=== PATIENT | female | born 1985 | race Caucasian/White ===

== ENCOUNTER 2023-10-07 19:13 | Outpatient (REF) | payer MEDICAID, SELFPAY ==
[2023-10-13 16:10] LABS: Age Gdln ACOG Testing Note (.); HPV Aptima Negative (Negative); IGP, Aptima HPV, rfx 16/18,45 Note (.)
== END 2023-10-07 19:14 | disposition home or self-care (01) ==
LOC: LAB 19:13
PROVIDERS: PCP Family Medicine; Visit Provider Obstetrics & Gynecology
DX: Z01.419 Encounter for gynecological examination (general) (routine) without abnormal findings (principal)
CPT/HCPCS: 87624; G0145

== ENCOUNTER 2024-10-16 09:55 | Outpatient (OUT) | payer MEDICAID, SELFPAY ==
[2024-10-16 10:14] LABS: Basophils Percent Auto 0.3 % (0.2-2.0); Eosinophils Absolute Auto 0.1 10^3/uL (0.0-0.7); Eosinophils Percent Auto 0.8 % (0.9-7.0); Hematocrit 37.5 % (36.0-48.0); Hemoglobin 12.6 g/dL (12.0-16.0); Immature Granulocytes Abs Auto 0.05 10^3/uL (0.00-0.03); Immature Granulocytes Pct Auto 0.5 % (0.0-0.5); Lymphocytes Absolute Auto 2.4 10^3/uL (1.2-3.8); Lymphocytes Percent Auto 25.9 % (20.5-60.0); Mean Corpuscular HGB Conc 33.6 g/dL (29.9-35.2); Mean Corpuscular Hemoglobin 29.4 pg (26.7-34.0); Mean Corpuscular Volume 87.6 fL (81.0-99.0); Mean Platelet Volume 8.5 fL (9.5-13.5); Monocytes Absolute Auto 0.4 10^3/uL (0.3-0.8); Monocytes Percent Auto 4.8 % (1.7-12.0); Neutrophils Absolute Auto 6.2 10^3/uL (1.4-6.5); Neutrophils Percent Auto 67.7 % (43.0-75.0); Platelet Count 287 10^3/uL (150-450); Red Blood Count 4.28 10^6/uL (4.20-5.40); Red Cell Distribution Width 12.7 % (11.0-15.0); White Blood Count 9.2 10^3/uL (4.0-11.0)
--- OUTSIDE RECORDS SUMMARY | 2024-10-16 10:20 | XMS_ITS | CCD ---
Author Organization [facility] Care Team Providers Care Senior Ui Ux Developer Name Role Phone Chato Calle Primary Care Provider CHATO CALLE Primary Care Unavailable CHATO CALLE Referring Unavailable HUBERT GRIFFIN Admitting Unavailable HUBERT GRIFFIN Attending Unavailable LA Procedure Practitioner Unavailab HUBERT Ma Surgeon Unavailable Sandy Norris Unavailable JUAN OROZCO Admitting Unavailable DRU, DR CHATO Blackwood Primary Care Unavailable BETO, DR ANIL Ramirez Consulting Unavailable BILLY ., JUAN Attending Unavailable BILLY ., JUAN Consulting Unavailable SUNDAY ., DR HSU Attending Unavailable SUNDAY ., DR HSU Consulting Unavailable SUNDAY ., DR HSU Admitting Unavailable DRU, DR CHATO Blackwood Primary Care Unavailable SUNDAY ., DR HSU Attending Unavailable SUNDAY ., DR HSU Consulting Unavailable SUNDAY ., DR HSU Admitting Unavailable DRU, DR CHATO Blackwood Primary Care Unavailable HUBERT GRIFFIN Attending Unavailable HUBERT GRIFFIN Admitting Unavailable HUBERT GRIFFIN Attending Unavailable HUBERT GRIFFIN Attending Unavailable Mary Bryan Unavailable BLANCA WHATLEY Attending Unavailable SHADI BRAND Attending Unavailable Chato Calle MD Primary Care Provider CHATO CALLE Primary Care Unavailable CHATO CALLE Primary Care Unavailable DANIEL DIOR Attending Unavailable Chato Calle MD Primary Care Provider [phone] Allergies Allergy Classification Reported Allergen(s) Allergy Type Date of Onset Reaction(s) Facility (8 sources) Acetaminophen / oxyCODONE; Translations: [OXYCODONE-ACETAM INOPHEN] Drug Allergy 1 Vomiting, Unknown, GI intolerance [facility] (3 sources) Penicillins; Translations: [PENICILLINS] Drug Allergy 1 Rash [facility] (2 sources) Acetaminophen / oxyCODONE; Translations: [PERCOCET] Drug Allergy 5 [facility] (1 source) Penicillins (Antibiotic); Translations: [PCN] Propensity to adverse reactions (disorder) 1 [facility] (3 sources) penicillAMINE Drug Allergy 4 rash [facility] (1 source) Penicillins Drug allergy (disorder) 7 [facility] (1 source) Penicillin; Translations: [PENICILLIN] Drug Allergy 1 [facility] (1 source) Acetaminophen Drug Allergy 4 [facility] (1 source) oxyCODONE Drug Allergy 4 [facility] (1 source) Penicillins Propensity to adverse reactions to drug 1 Rash [facility] (2 sources) Penicillins Drug Allergy 1 Rash, Unknown [facility] Medications Current Medications Medication Drug Class(es) Dates Sig (Normalized) Sig (Original) [id number] 200 actuat albuterol 0.09 mg/actuat metered dose inhaler (1 source) beta2-Adrenergic Agonist Start: 02-15-2023 take 2 puff(s) by inhalation four times daily as needed Albuterol Sulfate HFA 108 (90 Base) MCG/ACT 2 puffs Inhalation 4 times a day prn Feb, Active azithromycin 250 mg oral tablet (1 source) Macrolide Antimicrobial Start: 02-15-2023 Azithromycin 250 MG 2 tablet on the first day, then 1 tablet daily for 4 days Orally Once a day for 5 day(s) Feb, Active benzonatate 200 mg oral capsule (1 source) Non-narcotic Antitussive Start: 02-15-2023 take 1 capsule by mouth every eight hours Benzonatate 200 MG 1 capsule Orally Three times a day Feb, Active dextromethorphan hydrobromide 15 mg / guaiFENesin 400 mg / pseudoephedrine hydrochloride 60 mg oral tablet (1 source) alpha-Adrenergic Agonist, Uncompetitive Z-jrinuo-L-asparta te Receptor Antagonist, Sigma-1 Agonist Start: 08-27-2023 take 4 tablets by mouth every twenty-four hours Pseudoephedrine-Dm- Guaifenesin (Capmist Dm) 60-15-400 mg tablet Active 1 TAB PO EVERY 4-6 HOURS August 27, 2023 12:00am do not exceed 4 doses per 24 hrs ergocalciferol 1.25 mg oral capsule (2 sources) Provitamin D2 Compound ergocalciferol (Vitamin D-2) 1.25 MG (93998 UT) capsule 1 capsule Active famotidine 10 mg oral tablet (1 source) Histamine-2 Receptor Antagonist take 1 tablet by mouth in the morning, then take 1 tablet by mouth at bedtime famotidine (PEPCID) 10 mg tablet Take 1 tablet (10 mg total) by mouth in the morning and 1 tablet (10 mg total) before bedtime. Active FLUoxetine 20 mg oral tablet (4 sources) Serotonin Reuptake Inhibitor Start: 08-27-2023 take 20 mg by mouth once daily Fluoxetine Active 20 MG PO Daily August 27, 2023 12:00am Start: 08-04-2022 take 1 capsule by mo uth once daily FLUoxetine (PROzac) 20 MG capsule Indications: Abnormal weight gain TAKE ONE CAPSULE BY MOUTH DAILY 30 capsule 1 11/23/2022 Active fluticasone propionate 0.05 mg/actuat metered dose nasal spray (1 source) Corticosteroid Start: 08-27-2023 take 1 spray(s) nasal route twice daily Fluticasone Propionate (Flonase Allergy Relief) 50 mcg/actuation spray,suspension Active 1 SPRAY INTRANASAL Twice daily 16 August 27, 2023 12:00am administer 1 spray into each nostril ibuprofen 800 mg oral tablet (1 source) Nonsteroidal Anti-inflammatory Drug take 1 tablet by mouth every six hours as needed for pain ibuprofen (ADVIL,MOTRIN) 800 mg tablet Take 1 tablet (800 mg total) by mouth every 6 (six) hours as needed for pain. Active levothyroxine sodium 0.075 mg oral tablet (6 sources) l-Thyroxine Start: 08-27-2023 take 75 ug by mouth once daily Levothyroxine Active 75 MCG PO Daily August 27, 2023 12:00am levothyroxine (S ynthroid, Levoxyl) 50 MCG tablet Take 75 mcg by mouth in the morning. Active take 1.5 tablets by mouth in the morning levothyroxine (SYNTHROID, LEVOTHROID) 50 MCG tablet Take 1.5 tablets (75 mcg total) by mouth in the morning. Active take 1 tablet by mouth once camelia y Levothyroxine Sodium 75 MCG TAKE 1 TABLET BY MOUTH ONCE A DAY for 30 Active 24 hr metFORMIN hydrochloride 500 mg extended release oral tablet (4 sources) Biguanide Start: 10-04-2024 End: 01-02-2025 take 1 tablet by mouth every twenty-four hours at mealtime metFORMIN XR (Glucophage-XR) 500 MG 24 hr tablet Indications: Encounter for weight management Take 1 tablet (500 mg) by mouth in the evening. Take with meals Do not crush, chew, or split. 90 tablet 1 10/04/2024 01/02/2025 Active Start: 08-27-2023 Metformin Acti ve MG PO August 27, 2023 12:00am Start: 08-07-2022 take 1 tablet by tripp th every twenty-four hours in the morning metFORMIN XR (GLUCOPHAGE XR) 500 mg 24 hr tablet Take 1 tablet (500 mg total) by mouth in the morning. 08/07/2022 Active montelukast 10 mg oral tablet (1 source) Leukotriene Receptor Antagonist take 1 tablet by mouth once daily montelukast (SINGULAIR) 10 mg tablet Take 1 tablet (10 mg total) by mouth nightly. Active phentermine hydrochloride 37.5 mg oral tablet (2 sources) Sympathomimetic Amine Anorectic Start: 06-16-19 take 1 tablet by mouth before mealtime phentermine (Adipex-P) 37.5 MG tablet Indications: Encounter for weight management Take 1 tablet (37.5 mg) by mouth in the morning. Take before meals. 30 tablet 06/16/2023 Active phentermine 37.5 MG capsule Take 18.75 mg by mouth every morning. Active predniSONE 20 mg oral tablet (1 source) Start: 02-15-2023 take 1 tablet by mouth every twelve hours predniSONE 20 MG 1 tablet Orally bid for 5 day(s) Feb, Active Progesterone (3 sources) Progesterone Start: 08-27-2023 Progesterone Micronized (Bulk) Active EACH MISCELLANE August 27, 2023 12:00am Progesterone 4 % gel Progesterone Active Completed/Discontinued Medications Medication Drug Class(es) Dates Sig (Normalized) Sig (Original) clarithromycin 250 mg oral tablet (2 sources) Macrolide Antimicrobial Start: 05-11-2016 take 1 tablet by mouth every twelve hours Biaxin 250 MG 1 tablet Orally every 12 hrs for 10 day(s) May, Not-Taking Loratadine / Pseudoephedrine (2 sources) alpha-Adrenergic Agonist Start: 05-11-2016 take 5-120 mg by mouth every twelve hours as needed Loratadine-Pseu doephedrine ER 5-120 MG 1 tablet as needed Orally every 12 hrs for 10 days May, Not-Taking methylPREDNISolone 4 mg oral tablet (2 sources) Corticosteroid Start: 05-11-2016 Medrol (Rosas) 4 MG as directed Orally May, Not-Taking Problems Active Problems Problem Classification Problem Date Documented Da te Episodic/Chronic Abdominal hernia (1 source) Ventral hernia without obstruction or gangrene; Translations: [Ventral hernia without obstruction or gangrene] Onset: 08-14-2024 Episodic Abdominal pain (1 source) Abdominal pain Onset: 08-14-2024 Episodic Chronic obstructive pulmonary disease and bronchiectasis (1 source) Bronchitis, not specified as acute or chronic Episodic E Codes: Fall (1 source) Fall (on) (from) unspecified stairs and steps, initial encounter; Translations: [FALL ON FROM UNS STAIRS STEPS INIT] Onset: 10-08-2022 Episodic Other nervous system disorders (2 sources) Carpal tunnel syndrome, left upper limb; Translations: [Carpal tunnel syndrome, left upper limb] Onset: 03-03-2022 Chronic Other nervous system disorders (2 sources) Lesion of ulnar nerve, left upper limb; Translations: [Lesion of ulnar nerve, left upper limb] Onset: 03-03-2022 Chronic Other non-traumatic joint disorders (3 sources) Pain in left hip; Translations: [PAIN IN LEFT HIP] Onset: 10-06-2022 Episodic Other nutritional; endocrine; and metabolic disorders (1 source) Body mass index 40+ - severely obese; Translations: [Body mass index (BMI) 45.0-49.9, adult] Onset: 03-10-2022 03-10-2022 Chronic Other upper respiratory infections (1 source) Acute pharyngitis, unspecified Episodic Residual codes; unclassified (1 source) Obstructive sleep apnea syndrome; Translations: [Obstructive sleep apnea (adult) (pediatric)] Onset: 03-10-2022 03-10-2022 Chronic Sprains and strains (1 source) Strain of muscle, fascia and tendon of right hip, initial encounter; Translations: [STRAIN MUSC FASC TENDON RT HIP INIT] Onset: 10-08-2022 Episodic Thyroid disorders (4 sources) Non-toxic nodular goiter; Translations: [Nontoxic goiter, unspecified] Chronic Unclassified (2 sources) Animal Bite Onset: 04-11-2024 Past or Other Problems Problem Classification Problem Date Documented Date Episodic/Chronic Cardiac dysrhythmias (1 source) Palpitations; Translations: [Palpitations] Onset: 12-03-2021 03-10-2022 Episodic Complications of surgical procedures or medical care (1 source) Non-healing surgical wound; Translations: [Other complications of procedures, not elsewhere classified, initial encounter] Onset: 03-28-2021 03-28-2021 Episodic E Codes: Natural/environment (1 source) Bitten by cat, initial encounter; Translations: [Bitten by cat, initial encounter] Onset: 04-11-2024 Episodic Immunizations and screening for infectious disease (1 source) Encounter for screening for human papillomavirus (HPV); Translations: [ENC SCREENING HUMAN PAPILLOMAVIRUS] Onset: 05-12-2022 Episodic Other endocrine disorders (1 source) Endocrine disorder, unspecified; Translations: [ENDOCRINE DISORDER UNSPECIFIED] Onset: 05-12-2022 Episodic Other injuries and conditions due to external causes (1 source) Delayed healing of wound; Translations: [Other injury of unspecified body region, subsequent encounter] Onset: 03-21-2021 03-21-2021 Episodic Other screening for suspected conditions (not mental disorders or infectious disease) (4 sources) Encounter for screening for malignant neoplasm of cervix; Translations: [ENC SCREENING MALIG NEOPLASM CERV] Onset: 05-11-2022 Episodic Syncope (1 source) Near syncope; Translations: [Syncope and collapse] Onset: 12-03-2021 12-03-2021 Episodic Results Test Name Value Interpretation Reference Range Facility ALL CBC WITH AUTO DIFFon BASOPHILS ABSOLUTE AUTO 0 [facility] Basophils/100 WBC (Bld) 0.3 % 0.2 - 2.0 % [facility] Eosinophils/100 WBC (Bld) 0.8 % Low 0.9 - 7.0 % [facility] Erythrocyte distribution width (RBC) [Ratio] 12.7 % 11.0 - 15.0 % [facility] Hematocrit (Bld) [Volume fraction] 37.5 % 36.0 - 48.0 % [facility] Hemoglobin (Bld) [Mass/Vol] 12.6 g/dL 12.0 - 16.0 g/dL [facility] IMMATURE GRANULOCYTES ABS AUTO 0.05 High [facility] Immature granulocytes/100 WBC (Bld) 0.5 % 0.0 - 0.5 % [facility] Interpretation and review of laboratory results [facility]OLUTE AUTO 2.4 [facility] Lymphocytes/100 WBC (Bld) 25.9 % 20.5 - 60.0 % [facility] MCH (RBC) [Entitic mass] 29.4 pg 26.7 - 34.0 pg [facility] MCHC (RBC) [Mass/Vol] 33.6 g/dL 29.9 - 35.2 g/dL [facility] MCV (RBC) [Entitic vol] 87.6 fL 81.0 - 99.0 fL [facility] MONOCYTES ABSOLUTE AUTO 0.4 [facility] Monocytes/100 WBC (Bld) 4.8 % 1.7 - 12.0 % [facility] NEUTROPHILS ABSOLUTE AUTO 6.2 [facility] Neutrophils/100 WBC (Bld) 67.7 % 43.0 - 75.0 % [facility] Platelet mean volume (Bld) [Entitic vol] 8.5 fL Low 9.5 - 13.5 fL [facility] TBH EO # 0.1 [facility] TBH PLT 287 [facility] RBC 4.28 [facility] WBC 9.2 [facility] CBC AND AUTO DIFFon 08-15-19 25 ABSOLUTE BASOPHIL 0.1 X10E9/L Normal 0.0-0.2 [facility] Comment on above: Performed By: #### C BCA, CMP, 3040-3 #### [facility] ([id number]) [address] [place] [address], [place] [address] ABSOLUTE NEUTROPHIL 5.7 X10E9/L Normal 1.5-6.6 [facility] Comment on above: Performed By: #### Gaby HWANG CMP, 3 #### [facility] ([id number]) [address] [place] [address] 72328 Basophils/100 WBC (Bld) 0.6 % Normal [facility] Comment on above: Performed By: #### Gaby HWANG CMP, 3039-08 #### [facility] ([id number]) [address] [place] [address] 16294 Eosinophils (Bld) [#/Vol] 0.1 10*3/uL Normal 0.0-0.4 [facility] Comment on above: Performed By: #### Gaby HWANG CMP, 3039-08 #### [facility] ([id number]) [address] [place] [address] 99055 Eosinophils/100 WBC (Bld) 1.5 % Normal [facility] Comment on above: Performed By: #### Gaby HWANG CMP, 3039-08 #### [facility] ([id number]) [address] [place] [address] 46587 Erythrocyte distribution width (RBC) [Ratio] 13.8 % Normal 11.5-15.0 [facility] Comment on above: Performed By: #### Gaby HWANG CMP, 3 #### [facility] ([id number]) [address] [place] [address] 25910 Hematocrit (Bld) [Volume fraction] 36.9 % Normal 35-47 [facility] Comment on above: Performed By: #### Gaby HWANG CMP, 3 #### [facility] ([id number]) [address] [place] [address] 00266 Hemoglobin (Bld) [Mass/Vol] 12.8 g/dL Normal 11.7-15.5 [facility] Comment on above: Performed By: #### C LIZA HWANG, 3039-08 #### [facility] ([id number]) [address] [place] [address] 95444 Lymphocytes (Bld) [#/Vol] 2.5 10*3/uL Normal 1.0-3.5 [facility] Comment on above: Performed By: #### Gaby HWANG CMP, 3039-08 #### [facility] ([id number]) [address] [place] [address] 38474 Lymphocytes/100 WBC (Bld) 28.1 % Normal [facility] Comment on above: Performed By: #### Gaby HWANG CMP, 3039-08 #### [facility] ([id number]) [address] [place] [address] 81904 MCH (RBC) [Entitic mass] 29.7 pg Normal 27-34 [facility] Comment on above: Performed By: #### Gaby HWANG CMP, 3039-08 #### [facility] ([id number]) [address] [place] [address] 04802 MCHC (RBC) [Mass/Vol] 34.5 g/dL Normal 32-36 [facility] Comment on above: Performed By: #### Gaby HWANG CMP, 3039-08 #### [facility] ([id number]) [address] [place] [address] 49516 MCV (RBC) [Entitic vol] 86 fL Normal 80-100 [facility] Comment on above: Performed By: #### Gaby HWANG CMP, 3039-08 #### [facility] ([id number]) [address] [place] [address] 84361 Monocytes (Bld) [#/Vol] 0.5 10*3/uL Normal 0-0.9 [facility] Comment on above: Performed By: #### Gaby HWANG CMP, 3040-3 #### [facility] ([id number]) [address] [place] [address] 67301 Monocytes/100 WBC (Bld) 5.2 % Normal [facility] Comment on above: Performed By: #### Gaby HWANG, CMP, 3040-3 #### [facility] ([id number]) [address] [place] [address] 33917 Neutrophils/100 WBC (Bld) 64.6 % Normal [facility] Comment on above: Performed By: #### Gaby HWANG, CMP, 3039-3 #### [facility] ([id number]) [address] [place] [address] 51573 Platelet mean volume (Bld) [Entitic vol] 7.1 fL Normal 7-12 [facility] Comment on above: Performed By: #### Gaby HWANG, CMP, 3 #### [facility] ([id number]) [address] [place] [address] 50870 Platelets (Bld) [#/Vol] 331 10*3/uL Normal 150-450 [facility] Comment on above: Performed By: #### Gaby HWANG, CMP, 3 #### [facility] ([id number]) [address] [place] [address] 66855 RBC COUNT 4.29 X10E12/L Normal 3.80-5.20 [facility] Comment on above: Performed By: #### Gaby HWANG, CMP, 3039-3 #### [facility] ([id number]) [address] [place] [address] 58745 WBC (Bld) [#/Vol] 8.8 10*3/uL Normal 4.0-11.0 [facility] Comment on above: Performed By: #### Gaby HWANG, CMP, 3039-3 #### [facility] ([id number]) [address] [place] [address] 70570 COMPREHENSIVE METABOLIC PANE Tod 08-14-2024 Albumin [Mass/Vol] 4.1 g/dL Normal 3.2-5.3 [facility] Comment on above: Performed By: #### C LIZA HWANG, 3039-3 #### [facility] ([id number]) [address] [place] [address] 97829 ALP [Catalytic activity/Vol] 73 U/L Normal 39-130 [facility] Comment on above: Performed By: #### C JAIDEN, CMP, 3039-3 #### [facility] ([id number]) [address] [place] [address] 34713 ALT [Catalytic activity/Vol] 29 U/L Normal 0-31 [facility] Comment on above: Performed By: #### C JAIDEN CMP, 3039-3 #### [facility] ([id number]) [address] [place] [address] 71080 Anion gap [Moles/Vol] 4 mmol/L Low 5-15 [facility] Comment on above: Performed By: #### C JAIDEN [facility], 3039-3 #### [facility] ([id number]) [address] [place] [address] 59537 AST [Catalytic activity/Vol] 26 U/L Normal 0-41 [facility] Comment on above: Performed By: #### Gaby BCA CMP, 3039-3 #### [facility] ([id number]) [address] [place] [address] 35175 Bilirubin [Mass/Vol] 0.7 mg/dL Normal 0.3-1.2 [facility] Comment on above: Performed By: #### C BCA, CMP, 3039-3 #### [facility] ([id number]) [address] [place] [address] 48966 Calcium [Mass/Vol] 8.9 mg/dL Normal 8.5-10.5 [facility] Comment on above: Performed By: #### C LIZA HWANG, 0-3 #### [facility] ([id number]) [address] [place] [address] 07137 Chloride [Moles/Vol] 106 mmol/L Normal 98-109 [facility] Comment on above: Performed By: #### C LIZA HWANG, 3039-3 #### [facility] ([id number]) [address] [place] [address] 47253 CO2 [Moles/Vol] 25 mmol/L Normal 22-32 [facility] Comment on above: Performed By: #### C LIZA HWANG, 3 #### [facility] ([id number]) [address] [place] [address] 06329 Creatinine [Mass/Vol] 0.49 mg/dL Normal 0.40-1.00 [facility] Comment on above: Result Comment: METH OD TRACEABLE TO IDMS STANDARD Performed By: #### C LIZA HWANG, 3 #### [facility] ([id number]) [address] [place] [address] 09044 eGFR (CKD-EPI) NON-RACE DEPENDENT >90 Normal >59 [facility] Comment on above: Result Comment: Reported eGFR is based on the CKD-EPI 2020 equation that does not use a race coefficient. Performed By: #### C LIZA HWANG, 3039-3 #### [facility] ([id number]) [address] [place] [address] 51420 Glucose [Mass/Vol] 96 mg/dL Normal 65-99 [facility] Comment on above: Performed By: #### C LIZA HWANG, 3039-3 #### [facility] ([id number]) [address] [place] [address] 90692 Potassium [Moles/Vol] 4.0 mmol/L Normal 3.5-5.0 [facility] Comment on above: Performed By: #### C BCA, CMP, 3040-3 #### [facility] ([id number]) [address] [place] [address] 11663 Protein [Mass/Vol] 7.7 g/dL Normal 6.0-8.0 [facility] Comment on above: Performed By: #### C BCA, CMP, 3040-3 #### [facility] ([id number]) [address] [place] [address] 20199 Sodium [Moles/Vol] 135 mmol/L Normal 134-146 [facility] Comment on above: Performed By: #### C BCA, CMP, 3040-3 #### [facility] ([id number]) [address] [place] [address] 47248 Urea nitrogen [Mass/Vol] 8 mg/dL Normal 5-23 [facility] Comment on above: Performed By: #### C BCA, CMP, 3040-3 #### [facility] ([id number]) [address] [place] [address] ABDOMEN AND PELVIS WO CON Ton 08-14-2024 CT ABDOMEN AND PELVIS WO CONT CT ABDOMEN AND PELVIS WO CONT Noncontrast CT abdomen and pelvis, 08/14/2024. History: Acute abdominal pain Comparison: None. Technique: Multiple contiguous 5 mm axial images were acquired from the lung bases through the ischial tuberosities. Coronal and sagittal reconstructions were performed. Automated exposure control was utilized. Findings: Lung bases are clear. No pleural fluid collection. Visible heart is within normal limits. Evaluation of abdominal structures compromised by absence of IV contrast. The liver, spleen, pancreas and adrenal glands are within normal limits. Normal gallbladder. No biliary ductal dilatation. No renal calculi or hydronephrosis. No perinephric fluid collection. Unremarkable urinary bladder. Uterus and adnexal structures are within normal limits. Bowel demonstrates no obstruction or acute inflammatory change. Normal appendix. Nonobstructed small bowel within an infraumbilical ventral hernia. No significant free air or fluid. No mesenteric lymphadenopathy. Normal caliber aorta and iliac arteries. Right-sided IVC. No pathologic enlargement of retroperitoneal or pelvic lymph nodes. No acute osseous abnormality. IMPRESSION: * No acute pathologic process. * Ventral hernia containing nonobstructed small bowel loops. All CT scans at this facility use dose modulation, iterative reconstruction, and/or weight based dosing when appropriate to reduce radiation dose to as low as reasonably achievable. 1 Finalized by Mika Jorgensen MD on 08/14/2024 12:52 PM Normal [facility] LIPASEon 08-14-2024 Lipase [Catalytic activity/Vol] 26 U/L Normal 17-40 [facility] Comment on above: Performed By: #### C BCA, [facility], 3040-3 #### [facility] ([id number]) [address] [place] [address] 32623 SARS/FLU A+B/RSV by NAAT/Mol ecularon 08-14-2024 SARS/FLU A+B/RSV by NAAT/Molecular FLU A PCR Negative (qualifier value) FLU B PCR Negative (qualifier value) RSV by PCR Negative (qualifier value) SARS CoV 2 Not detected (qualifier value) NOTE The Xpert Xpress SARS-CoV-2/Flu/RSV Plus test is a rapid, multiplexed real-time RT-PCR test intended for the simultaneous qualitative detection and differentiation of SARS-CoV-2, influenza A, influenza B and respiratory syncytial virus (RSV) viral RNA from individuals suspected of respiratory viral infection consistent with COVID-19 by their healthcare provider. This test has not been validated in asymptomatic patients. The Xpert Xpress SARS-CoV-2 test is intended for use by qualified and trained operators who are performing tests using either [employer] or [employer] systems and is limited to laboratories that meet the CLIA requirements to perform high and moderate complexity tests. The Xpert Xpress SARS-CoV-2/Flu/RSV Plus is only for use under the Food and Drug Administration's Emergency Use Authorization. Results are for the simultaneous detection and differentiation of SARS-CoV-2, influenza A, influenza B and RSV nucleic acids in clinical specimens. SARS-CoV-2, influenza A, influenza B and RSV RNA identified by this test are generally detectable in upper respiratory samples during the acute phase of infection. Positive results are indicative of the presence of the identified virus, but do not rule out bacterial infection or co-infection with other pathogens not detected by this test. Clinical correlation with patient history and other diagnostic information is necessary to determine patient infection status. The agent detected may not be the definite cause of disease. Negative results do not preclude SARS-CoV-2, influenza A, influenza B and RSV infection and should not be used as the sole basis for treatment or other patient management decisions. Negative results must be combined with clinical observations, patient history and epidemiological information. An Invalid result may occur with specimen-associated inhibition unable to be resolved with specimen repeat. Fact Sheet for Healthcare Providers: https://www.fda.gov/ne pb/825891/download Fact Sheet for Patients: https://www.fda.gov/ne pb/831924/download [facility] Comment on above: Performed By: #### C OVFLR #### [facility] ([id number]) [address] [place] [address] 44807 URN MACROSCOPIC NURon 2024 BILIRUBIN HONORIO Negative Normal [facility] Comment on above: Performed By: #### N UM #### [facility] ([id number]) [address] [place] [address] 93411 BLOOD/HGB HONORIO Negative Normal [facility] Comment on above: Performed By: #### N UM #### [facility] ([id number]) [address] [place] [address] 56300 GLUCOSE HONORIO Negative Normal [facility] Comment on above: Performed By: #### N UM #### [facility] ([id number]) [address] [place] [address] 56048 KETONES HONORIO Negative Normal NEG [facility] Comment on above: Performed By: #### N UM #### [facility] ([id number]) [address] [place] [address] 21507 LEUKOCYTE ESTERASE HONORIO Negative Normal [facility] Comment on above: Performed By: #### N UM #### [facility] ([id number]) [address] [place] [address] 03745 NITRITE HONORIO Negative Normal NEG [facility] Comment on above: Performed By: #### N UM #### [facility] ([id number]) [address] [place] [address] 31052 PH HONORIO 7.0 Normal 5.0-8.5 [facility] Comment on above: Performed By: #### N UM #### [facility] ([id number]) [address] [place] [address] 09685 PROTEIN HONORIO Negative Normal NEG [facility] Comment on above: Performed By: #### N UM #### [facility] ([id number]) [address] [place] [address] 82058 SPECIFIC GRAVITY HONORIO 1.015 Normal 1.003-1.035 [facility] Comment on above: Performed By: #### N UM #### [facility] ([id number]) [address] [place] [address] 64996 UROBILINOGEN HONORIO 0.2 eu/dL Normal <1.1 [facility] Comment on above: Performed By: #### N UM #### [facility] ([id number]) [address] [place] [address] 78494 Quick Strepon 02-15-2023 S. pyogenes Org specific cx Ql (Throat) Negative [facility] Other Quick Strep [facility] Other Orders Onlyon 11-04-2022 Orders Only [id number] Tasha Isaac 1985 F Date Provider Department Center 11/04/2022 [facility] MP ORTHO MPORTHO No family history on file Normal [facility] CT HIP LT WO CONon CT HIP LT WO CON EXAMINATION: CT HIP LT WO CON HISTORY: PAIN IN UNSPECIFIED HIP COMPARISON: XR head left 10/06/2022 TECHNIQUE: Multi-planar CT images were created without IV contrast. Dose reduction techniques were achieved by using automated exposure control and/or adjustment of mA and/or kV according to patient size and/or use of iterative reconstruction technique. FINDINGS: BONES: No fracture, dislocation, bone lesion. A few tiny calcifications within superior labrum account for appearance on today's radiographs. SOFT TISSUES: Negative. No visible soft tissue swelling. EFFUSION: None visible. OTHER: Negative. IMPRESSION: 1. No fracture or acute bone abnormality. Electronically authenticated by: ANIL PÉREZ Date: 2022-10-06 12:57 Normal [facility] PAP ACOG PANEL 2: 30 to 65on 05-20-2022 . . Normal [facility] Comment on above: Result Comment: Perf ormed at: WB Performed By: #### 4 [id number] ####[facility] [address] [place] [address]Dr. Jesus Davis Age Gdln ACOG Testing 30-65 Normal [facility] Comment on above: Performed By: #### 4 [id number] ####[facility] [address] [place] [address]Dr. Jesus Davis DIAGNOSIS: Comment Normal [facility] Comment on above: Result Comment: NEGA TIVE FOR INTRAEPITHELIAL LESION OR MALIGNANCY. PREDOMINANCE OF COCCOBACILLI CONSISTENT WITH SHIFT IN VAGINAL FELA IS PRESENT. THIS SPECIMEN WAS RESCREENED PART OF OUR COLON AND RECTAL SURGEON PROGRAM. Performed at: WB Performed By: #### 4 [id number] ####[facility] [address] [place] [address]Dr. Jesus Davis HPV Aptima Negative Normal Negative [facility] Comment on above: Result Comment: This nucleic acid amplification test detects fourteen high-risk HPV types (16,18,31,33,35,39,45,51,52,56,58,59,66,68) without differentiation. Performed at: =G Performed By: #### 4 [id number] ####[facility] [address] [place] [id number]. Jesus Davis HPV Genotype Reflex Comment Normal [facility] Comment on above: Result Comment: Crit eria not met, HPV Genotype not performed. Performed at: WB Performed By: #### 4 [id number] ####[facility] [address] [place] [address]Dr. Jesus Davis Methodology: Comment [facility] Comment on above: Result Comment: This liquid based ThinPrep(R) pap test was screened with the use of an image guided system. Performed at: WB Performed By: #### 4 [id number] ####[facility] [address] [place] [address]Dr. Jesus Davis Note: Comment Normal [facility] Comment on above: Result Comment: The Pap smear is a screening test designed to aid in the detection of premalignant and malignant conditions of the uterine cervix. It is not a diagnostic procedure and should not be used as the sole means of detecting cervical cancer. Both false-positive and false-negative reports do occur. . Performed at: WB Performed By: #### 4 [id number] ####[facility] [address] [place], [place] [address]Dr. Jesus Davis Performed by: Comment Normal [facility] Comment on above: Result Comment: Macie Isaac, Geological Manager Performed at: WB Performed By: #### 4 [id number] ####[facility] [address] [place], [place] [address]Dr. Jesus Davis QC reviewed by: Comment Normal [facility] Comment on above: Result Comment: Cesar Ramon, Geological Manager Performed at: WB Performed By: #### 4 [id number] ####[facility] [address] [place], [place] [address]Dr. Jesus Davis Specimen adequacy: Comment Normal [facility] Comment on above: Result Comment: Sati sfactory for evaluation. Endocervical and/or squamous metaplastic cells (endocervical component) are present. Performed at: WB Performed By: #### 4 [id number] ####[facility] [address] [place] [address]DrMary Ann Davis ESTROGENon 05-14-2022 Estrogens, Total 325 pg/mL [facility] Comment on above: Result Comment: Prep ubertal < 40 Female Cycle: 1-10 Days 16 - 328 11-20 Days 34 - 501 21-30 Days 48 - 350 Post-Menopausal 40 - 244 Performed By: #### E STROG #### [facility] [address] [place] [address] Dr. Jesus Davis TESTOSTERONE, FREE,DIRECT, T OTALon 05-14-2022 Free Testosterone(Direct ) 2.6 pg/mL Normal 0.0-4.2 [facility] Comment on above: Result Comment: Perf ormed at: BN Performed By: #### T ESTD #### [facility] [address] [place] [address] Dr. Jesus Davis Testosterone [Mass/Vol] 34 ng/dL Normal 8-60 [facility] Comment on above: Result Comment: Perf ormed at: CB Performed By: #### T JO #### [facility] [address] [place] [address] Dr. Jesus Davis CORTISOLon 05-13-2022 Cortisol 6.4 ug/dL Normal [facility] Comment on above: Result Comment: Evan isol AM 6.2 - 19.4 Cortisol PM 2.3 - 11.9 Performed By: #### C ORTISO #### [facility] [address] [place] [address] Dr. Jesus Davis DHEA-SULFATEon 05-13-2022 DHEA-Sulfate 222.0 ug/dL Normal 57.3-279.2 [facility] Comment on above: Performed By: #### D HEASUL #### [facility] [address] [place] [address] Dr. Jesus Davis ESTRADIOLon 05-13-2022 Estradiol 128.0 pg/mL Normal [facility] Comment on above: Result Comment: Adul t Female: Follicular phase 12.5 - 166.0 Ovulation phase 85.8 - 498.0 Luteal phase 43.8 - 211.0 Postmenopausal <6.0 - 54.7 1st trimester 215.0 - >4300.0 Harpreet ECLIA methodology Performed By: #### E STRADI #### [facility] [address] [place] [address] Dr. Jesus Davis PROGESTERONEon 05-13-2022 Progesterone 5.8 ng/mL Normal [facility] Comment on above: Result Comment: Foll icular phase 0.1 - 0.9 Luteal phase 1.8 - 23.9 Ovulation phase 0.1 - 12.0 First trimester 11.0 - 44.3 Second trimester 25.4 - 83.3 Third trimester 58.7 - 214.0 Postmenopausal 0.0 - 0.1 Performed By: #### P ROGES #### [facility] [address] [place] [address] Dr. Jesus Davis SEX HORMONE-BINDING GLOBULIN on 05-13-2022 Sex Horm Binding Glob, Serum 58.1 nmol/L Normal 24.6-122.0 [facility] Comment on above: Performed By: #### S EXHBG #### [facility] [address] [place] [address] Dr. Jesus Davis VITAMIN D 25 OHon 05-11-2022 VIT D 25-OH 9.9 ng/mL Normal [facility] Comment on above: Performed By: #### V ITAD #### [facility] [address] [place] [address] Dr. Jesus Davis VIT D RANGES SEE BELOW Normal [facility] Comment on above: Result Comment: <20 ng/mL Vit D deficient 20 - <30 ng/mL Vit D insufficient 30 - 100 ng/mL Vit D sufficient >100 ng/mL Potential Toxicity Performed By: #### V ITAD #### [facility] [address] [place] [address] Dr. Jesus Davis Office Visiton 04-15-2022 Follow-up visit [id number] Tasha Isaac 1985 F Date Provider Department Center 04/15/2022 [place] MP ORTHO MPORTHO No family history on file Level of Service:81406 LA POSTOP FOLLOW UP VISIT RELATED TO ORIGINAL PX Reason for Visit and Comments: Post-op [483] Pain [136] Post-op [483] Pain [136] Normal [facility] HPon 03-30-2022 HP H&P reviewed. The patient was examined and there are no changes to the H&P. Jocelyn is scheduled for a left carpal tunnel release and ulnar nerve transposition. She had the same procedure done on her right arm and is doing very well following that. Her exam on the left upper extremity is consistent with the previous note, and without interval changes [facility] H&P reviewed. The patient was examined and there are no changes to the H&P. [facility] NURSNOTEon 03-30-2022 NURSNOTE IMEDS delivered at bedside Su Wyatt RN PACU [facility] NURSNOTE DISCUSSED ALLERGIES WITH DR. GARDNER, CHRISTELLE FOR PCN. [facility] OPNOTEon 03-30-2022 OPNOTE Operative Note Patient: Jocelyn Isaac Date of Surgery: 03/30/2022 : 1985 Pre-operative Diagnosis: Cubital Tunnel Syndrome left Elbow Carpal tunnel syndrome left hand Post-operative Diagnosis: same Operation: Subcutaneus Transposition of Ulnar Nerve left Elbow (31916) Carpal tunnel release left hand (09162) Surgeon: Hubert Griffin MD Clinical Partner: Holley Gardner Staff: Data Processing Manager: Catherine Thorpe RN Scrub Person: Rosi García CST Anesthesia Type: Regional Indications: The patient is an 36 y.o. female with complaints of numbness in the left arm. The evaluation and work-up are consistent with that of cubital tunnel syndrome. This has been a worsening problem despite nonoperative means of treatment. The patient is brought to the operating room today for a transposition of the ulnar nerve. The risks and benefits were explained prior to surgery, and with good understanding it is agreed to proceed. Procedure Details The patient is taken to the operating room and placed on the table in a supine position. The left arm is placed onto the hand table. A regional anesthetic had been performed per the anesthesia service in the holding area. Preoperative antibiotics were given. A tourniquet is placed around the proximal arm and that upper extremity is prepped and draped out in a sterile fashion. To begin the procedure, after a standard timeout, the arm is exsanguinated with an Esmarch bandage and the tourniquet is inflated to 250 mmHg. To begin the procedure, after a standard timeout, using a 15 blade a 2-1/2 cm incision is made between the thenar and hyperthenar regions. Sharp dissection is carried out through the subcutaneous tissue. Superficial blood vessels were cauterized with a Bovie. Two Flako rakes were used to retract the skin edges. The palmar fascia is split in line with our skin incision. There is a palmaris brevis muscle that was split in line with our dissection. Additional care was taken to watch for an abnormal motor branch. This brought us down to the transverse carpal ligament where I could clearly see the ligament, it is opened up in a gradual fashion using a knife blade working from distal to proximal. Switching to a tenotomy scissor, we bluntly dissected through the most distal portion of the ligament until that is completely released. The proximal end of the ligament is undermined and then split sharply with a scissor. I could use the tip of the scissors to palpate the release to make sure that it was complete. Once satisfied with that, the median nerve is bluntly dissected out and there is no noted abnormality. The wound is irrigated with normal saline solution. The skin is closed with 5-0 Novafil suture. We then turned our attention to the ulnar nerve.The arm is abducted and externally rotated, and the elbow was placed on a small stack of blue towels. Using a 15 blade, a 3 to 4 cm curvilinear incision is made along the posterior medial aspect of the elbow, following the course of the ulnar nerve. Blunt dissection is carried out through the subcutaneous tissue. Care was taken to preserve any large branches of the medial antebrachial cutaneous nerve. The ulnar nerve is palpable just above and behind the medial epicondyle. The nerve is exposed at that level. Using an [place] retractor to elevate the proximal skin, the brachial fascia was released up to about the level of the arcade of [place]. With my finger I could palpate to make sure that there was no proximal compression. We then carefully dissected through the cubital tunnel region, releasing Grayson's ligament and the fascia over the cubital tunnel. Distally the FCU fascia was split. Again an [place] retractor was used to elevate the distal skin so that we could safely visualize that. The elbow was brought through a full range of motion several times and the nerve was found to be unstable and sublux onto the medial epicondyle. Seeing that, I felt that a subcutaneous transposition was indicated. The incision was extended both proximally and distally. A vessel loop was placed around the ulnar nerve so that we could safely control it. The nerve was dissected out circumferentially so that it could be transposed. Before moving the nerve, the intermuscular septum along the epicondylar ridge was dissected out and excised using a Bovie. A plane between the subcutaneous fat and the flexor pronator fascia was developed. The ulnar nerve is now transposed into the subcutaneous plane. The wound is irrigated thoroughly with normal saline solution. A little subcutaneous fat is sutured down to the flexor pronator fascia behind the ulnar nerve in order to keep it from getting back on top of the medial epicondyle. The subcutaneous tissue was closed with buried sutures of 2-0 Vicryl. The skin is closed with a running subcuticular 4-0 Biosyn. A sterile dressing of benzoin and Steri-Strips, 4 x 4 fluffs, Ker (more content not included)... Normal [facility] POCT GLUCOSE METER UNSOLICIT ED RESULTSon 03-30-2022 Glucose [Mass/Vol] 95 mg/dL Normal 70-105 [facility] Comment on above: Result Comment: samuel zambrano Performed By: #### L [id number] ####[facility] ([facility])[address] [place] [address] HPon 03-03-2022 Orthopedic Surgery Subjective Chief complaint: Chief Complaint Patient presents with Left Hand - Pain Left Arm - Pain 03/03/22 Jocelyn Isaac is a 36 y.o. year old female presenting today with a chief complaint of left hand numbness and tingling. She has had this for over 1 year. Her symptoms of numbness and tingling will occasionally wake her up at night. She has tried conservative management in the form of brace wear. She had similar complaints in her right hand and had carpal tunnel cubital tunnel release performed October 2020. She has had significant improvement in her right upper extremity and would like similar symptom relief to the left: . ROS was reviewed and was negative for fever, chills, nausea, vomiting, headache, chest pain, shortness of breath. Patient History No past surgical history on file. No past medical history on file. Objective General: Body mass index is 45.42 kg/m???. No acute distress, comfortable Respiratory: Unlabored breathing with normal rate, no cough Cardiovascular: Warm well perfused extremities Psych: Appropriate mood behavior Left upper extremity: Inspection-left elbow skin is intact. No erythema. No bruising. Left wrist skin is intact. No bruising. No erythema. Special tests-positive Tinel at the elbow. Positive carpal compression test at the wrist. Motors-5 out of 5 muscle strength in median, ulnar, radial nerve motor distribution. Sensory-sensory intact light touch in median, ulnar, radial nerve. Vascular-radial pulse 2+ and intact. EMG performed 09-03-2020 makes note of left wrist mild carpal tunnel and ulnar nerve neuropathy at the left elbow. Assessment/Plan Jocelyn Isaac is a 36 y.o. year old female with Carpal tunnel syndrome of left wrist Cubital tunnel syndrome on left. Due to her failure of conservative management in the form of brace wear, she is indicated for left carpal tunnel release and cubital tunnel release with possible transposition. Surgical consent was obtained today. Risks and benefits of surgery were explained. Christian Styles MD PGY-3 Orthopedic Surgery [facility] By using the attestations below, the signing clinician agrees that I have read and verify that the documentation has been personally reviewed by me and ensure that the documentation accurately reflects the encounter. GC: I personally saw this patient on the day of the encounter, performed the ames portion(s) of the service and participated in the management and confirm the resident's documentation. Please note there may be an additional personal documentation from me. Normal [facility] Office Visiton 03-03-2022 Follow-up visit [id number] Tasha Isaac 1985 F Date Provider Department Center 03/03/2022 [place] MP ORTHO MPORTHO No family history on file Level of Service:21649 LA OFFICE/OUTPATIENT ESTABLISHED LOW MDM 20-29 MIN Reason for Visit and Comments: Pain [136] Pain [136] Normal [facility] CNOVSPon 02-03-2021 CNOVSP Visit (SP) Office ([place]) JOCELYN ISAAC ([id number]) 1985 F Date Time Provider Department 02/03/21 2:00 PM AKVIN SORIA During your visit today, we recorded the following information about you: Temperature Pulse Respiration Blood pressure 97.7 degrees 99/minute 18/minute 142/89 Weight Height Last Period 135 kg 1.702 m 02/03/21 Kavin Soria MD 02/04/2021 6:18 AM Signed HEMATOLOGY INITIAL CONSULTATION February 03, 2021 REFERRAL REQUESTED BY: Shadi Brand PCP and other physicians involved in patient's care: Shadi Brand (surgery, [facility]) REASON FOR CONSULTATION: Factor V Leiden, clearance prior to hysterectomy HEMATOLOGICAL HISTORY: ? First in 2007 at the age of 22 years was complicated by a VQ scan concerning for a pulmonary embolism at 26 weeks. She received LMWH until 6 to 8 weeks . At some point she was also on warfarin after delivery. She had a . She was diagnosed to have a factor V Leiden mutation after anticoagulation was stopped and placed on aspirin. ? Second in 2010 for which she received LMWH from 10 weeks of to 6 weeks . She had a that was uneventful. ? Third in 2014 for which she received LMWH starting 10 weeks. She was switched to heparin 1 month before delivery to facilitate a spinal block. After delivery, she continued LMWH for 6 weeks. She had a with tubal ligation. course was complicated by uterine bleeding thought to be secondary to a problem with sutures. A clot was removed from the uterus, and she underwent repeat debridement a month later. She had a wound vac in place. ? She had a laparoscopic adhesiolysis in 2015 under general anesthesia and a carpal tunnel release in October 2020 which were uncomplicated ? Family history is questionable for venous thromboembolic events. Her father had a cardiac event. Paternal grandparents had sudden cardiac deaths, unclear whether these were pulmonary emboli. Paternal cousin had MTHFR mutation for which she received thromboprophylaxis during , but she did not have blood clots. ? Other risk factors for VTE include a high BMI. She is not a smoker and has not used oral contraceptives in the past. HPI: This is a 35-year-old female comes to the clinic for preoperative clearance. She has a history of factor V Leiden likely heterozygous, who is planned for hysterectomy. She has an IUD in place, and despite that is having heavy menstrual periods. She does not wish for any more pregnancies and the decision was made to proceed with abdominal hysterectomy. She has a history of pulmonary embolism with her first in 2007 as detailed above for which a preop clearance has been requested. Currently she denies any symptoms. ROS is negative except that mentioned in HPI PAST MEDICAL SURGICAL FAMILY AND SOCIAL HISTORY: She has a history of hypothyroidism and obesity. Hematological, family and surgical history is as detailed above. She lives with her 3 kids. She denies any substance abuse. MEDICATIONS AND ALLERGIES: Reviewed PHYSICAL EXAM BP 142/89 Pulse 99 Temp 36.5 ?C (97.7 ?F) (Temporal) Resp 18 Ht 170.2 cm (5' 7 ) Wt 135 kg (297 lb 9.6 oz) LMP 02/03/2021 SpO2 100% BMI 46.61 kg/m? Head atraumatic, no pallor, icterus or lymphadenopathy, lungs clear to auscultation, heart sounds regular, abdomen soft without distension or organomegaly, neuro grossly non-focal, skin without rash, extremities without swelling LABORATORY, IMAGING AND PATHOLOGY N/A ASSESSMENT AND RECOMMENDATIONS 35 female with factor V Leiden likely heterozygous Patient has a factor V Leiden (likely heterozygous) that was detected in 2007 after pulmonary embolism when she was 26 weeks . This VTE event would be categorized as a provoked clot. Additional 2 pregnancies were uncomplicated in the setting of adequate anticoagulation. Other risk factors for venous thromboembolic events includes obesity. I am doubtful about the thrombogenic significance of the Factor V Leiden, especially in the absence of . Overall, her risk of a VTE event post hysterectomy would be in the range of 4-10% based on an elevated modified Caprini score (moderate to high risk of VTE). Her bleeding risk is low. Recommend initiating pharmacologic prophylaxis with enoxaparin 40 mg once daily after hemostasis is achieved. Early ambulation is recommended. Enoxaparin can be continued until discharge. Given the doubtful role of factor V Leiden in the associated VTE event in 2007, I am not certain a longer duration of prophylaxis is warranted. Kavin Soria MD [phone] I spent a total of 62 minutes on the date of the service which included preparing to see the patient, [id number] patient care, completing clinical document (more content not included)... Normal [facility] Operative Reporton Operative Report MR#: [id number] S [facility] Pt. Name: Jocelyn Isaac Room #: 0C Discharge Date: Birthdate: 1985 OPERATIVE REPORT DATE OF SURGERY: 10/07/2020 SURGEON: Hubert Griffin M.D. PREOPERATIVE DIAGNOSES: 1. Carpal tunnel syndrome, right hand. 2. Cubital tunnel syndrome, right elbow. POSTOPERATIVE DIAGNOSES: 1. Carpal tunnel syndrome, right hand. 2. Cubital tunnel syndrome, right elbow. PROCEDURES: 1. Carpal tunnel release, right hand. 2. Subcutaneous transposition of ulnar nerve, right elbow. BOTTLE CASER: Sallie Kelly. ANESTHESIA: Regional with a digital regional. INDICATION FOR SURGERY: Actually, this is a 34-year-old female, whom we have seen in our [facility] with complaints of night pain and numbness in her arms. Her examination and workup were consistent with that of carpal and cubital tunnel syndrome involving the right upper extremity. This has been a worsening problem for her despite nonoperative means of treatment. She is felt to be a candidate for surgical management at this point. She was brought to the operating room today for that purpose. The risks and benefits were explained prior to surgery and with good understanding and she agreed to proceed. NARRATION: The patient was brought to the operating room and placed on the table in the supine position. A supraclavicular block had been administered per the Anesthesia Service in the holding area. A tourniquet was placed around the proximal right arm. She was given preoperative antibiotics and the right upper extremity was prepped and draped out in a sterile fashion. To begin the procedure, after a standard time-out, the arm was exsanguinated with an Esmarch bandage and the tourniquet was inflated to 250 mmHg. Using a #15 blade, a 2.5 cm incision was made on the palm between the thenar and hypothenar regions. She still had a little sensation, so the surgical site was anesthetized with some 1% lidocaine. Sharp dissection was then carried out through the subcutaneous tissue. Superficial blood vessels were cauterized with the Bovie. Two Flako rakes were used to retract the skin edges. The palmar fascia split in line with our skin incision. There was no palmaris brevis muscle to speak out. This brought us right down to the transverse carpal ligament. Where I could clearly see the ligament, it was opened up in a very gradual fashion using a knife blade working from distal to proximal. Switching over to a tenotomy scissor, we bluntly spread through the most distal end of the ligament until that was completely free. The proximal end was undermined and split sharply with a scissor. I could use the tip of the scissor to palpate the release to make sure that it was complete. Once satisfied with that, the median nerve was bluntly dissected out and there was no gross abnormalities. This wound was irrigated with normal saline solution and the skin was closed with some 5-0 Novafil suture. We then turned our attention to the medial aspect of the elbow. The arm was abducted and externally rotated. I rajat out an incision that roughly parallels the course of the ulnar nerve in the elbow. Again, she still had a little bit of sensation, so we anesthetized the area of the incision with some lidocaine. Blunt dissection was carried out through the subcutaneous tissue. After the incision had been made, again, superficial blood vessels were cauterized. We dissected down to the fascias, then I just started elevating the medial skin flap a little bit. The ulnar nerve was palpable just above and behind the medial epicondyle. The nerve was exposed at that level and secured with a vessel loop, so we had control. We 1st split the brachial fascia going up proximally. An [facility] retractor was used to elevate the proximal skin edge, so that we could see up to the level of the arcade of [place]. Once that was done, I could palpate up a little higher and there was no proximal compression. We carefully dissected through the cubital tunnel region releasing Grayson's ligament and the fascia over the tunnel. The area of Grayson ligament was markedly thickened and that is probably the site of compression. Distally, the FCU fascias were split and released. We started dissecting the nerve out circumferentially. We teased out 1 branch going to the FCU muscle, but there was nothing that is really tethering the nerve. Before transposing the nerve, the intermuscular septum along the epicondylar ridge was dissected free and excised with the Bovie. The nerve was transposed along the flexor pronator fascia. A little bit of subcutaneous fat was sutured down to the fascia just in front of the medial epicondyle to prevent the nerve from getting back on top of the bone. The wound was irrigated thoroughly with normal saline solution. The skin was closed with buried 2-0 Vicryl in a running subcuticular 4-0 Biosy (more content not included)... Normal [facility] POC GLUCOSE LABon 10-07-2020 Glucose [Mass/Vol] 96 mg/dL Normal 70-100 [facility] Comment on above: Performed By: #### [id number] #### [facility] [address] *SARS-CoV-2 COVID-19on 10-03 SARS-CoV-2 (COVID-19) RNA RICKY+probe Ql (Unsp spec) Not detected Normal Not Detected [facility] Comment on above: Order Comment: The A ptima SARS-CoV-2 assay is a nucleic acid amplification test intended for the qualitative detection of RNA from SARS-CoV-2 isolated and purified from nasopharyngeal (SPENT GRAIN DRYER),oropharyngeal (OP), nasal swab, sputum, and bronchoalveolar lavage (BAL) specimens from patients with signs and symptoms of infection who are suspected of COVID-19. Results are for the identification of SARS-CoV-2 RNA. The SARS-CoV-2 RNA is generally detectable during the acute phase of infection. The Aptima SARS-CoV-2 Assay on the [employer] and [employer] Fusion system is intended for use by laboratory personnel specifically instructed and trained in the operation of the [place] and [place] Fusion system. The Aptima SARS-CoV-2 assay is only for use under the Food and Drug Administration Emergency Use Authorization. Testing is limited to laboratories certified under the Clinical Laboratory Improvement Amendments of 1988 (CLIA), 42 U.S.C. ???263a, to perform high complexity tests. Not Detected: Not detected does not preclude SARS-CoV-2 infection and should not be used as the sole basis for patient management decisions. Not detected results must be combined with clinical observations, patient history, and epidemiological information. Performed By: #### [id number] #### [facility] [address] Vital Signs Date Time Vital Sign Value Performing Clinician Facility 08-27-2023 09:20-0400 Body height 170.18 cm [facility] 08-27-2023 09:20-0400 Body mass index (BMI) [Ratio] 47.4 kg/m2 [facility] 08-27-2023 09:20-0400 Body temperature 99.5 [degF] [facility] 08-27-2023 09:20-0400 Body weight 137.43 kg [facility] 08-27-2023 09:20-0400 Diastolic blood pressure 80 mm[Hg] [facility] 08-27-2023 09:20-0400 Heart rate 84 /min [facility] 08-27-2023 09:20-0400 Respiratory rate 18 /min [facility] 08-27-2023 09:20-0400 SaO2% (BldA) [Mass fraction] 99 % [facility] 08-27-2023 09:20-0400 Systolic blood pressure 144 mm[Hg] [facility] 02-15-2023 09:10-0400 Body height 170.18 cm Mary Bryan Other [facility] Other 02-15-2023 09:10-0400 Body mass index (BMI) [Ratio] 47.55 kg/m2 Mary Bryan Other [facility] Other 02-15-2023 09:10-0400 Body temperature 98.2 [degF] Mary Bryan Other [facility] Other 02-15-2023 09:10-0400 Body weight 137.71 kg Mary Bryan Other [facility] Other 02-15-2023 09:10-0400 Diastolic blood pressure 65 mm[Hg] Mary Bryan Other [facility] Other 02-15-2023 09:10-0400 Respiratory rate 18 /min Mary Bryan Other [facility] Other 02-15-2023 09:10-0400 SaO2% (BldA) [Mass fraction] 97 % Mary Bryan Other [facility] Other 02-15-2023 09:10-0400 Systolic blood pressure 112 mm[Hg] Mary Bryan Other [facility] Other 10-06-2022 10:30-0400 Body height 170.18 cm Sandy Norris Other [facility] Other Encounters Encounter Date Encounter Type Care Provider Facility Start: 10-16-2024 End: 10-16-2024 Bamboo flowsheet Shadi Sunday DO Work Phone: [facility] Start: 10-16-2024 End: 10-16-2024 Bamboo flowsheet Shadi Sunday DO Work Phone: [facility] Start: 10-16-2024 End: 10-16-2024 Clinisync Result Encounter Shadi Sunday DO Work Phone: [facility] Unsolicited Start: 08-14-2024 End: 08-14-2024 Emergency department patient visit [facility] Start: 04-11-2024 End: 04-11-2024 Emergency department patient visit [facility] Start: 04-10-2024 End: 04-10-2024 Telephone encounter Maribel Londono MACHINE ACCOUNTANT-SKIN PEELING MACHINE OPERATOR Work Phone: [facility] Start: 10-07-2023 End: 10-07-2023 ambulatory SHADI SUNDAY Not Available Start: 08-27-2023 End: 08-27-2023 ambulatory [facility] Work Phone: Start: 08-27-2023 End: 08-27-2023 Patient encounter procedure [facility] Work Phone: Start: 06-16-2023 End: 06-16-2023 ambulatory BLANCA WHATLEY Not Available Start: 02-15-2023 End: 02-15-2023 ambulatory Mary Bryan Other [facility] Other Start: 02-15-2023 Office outpatient vi sit 15 minutes Mary Bryan [facility] Start: 10-06-2022 Patient encounter procedure Sandy Norris [facility] Start: 10-06-2022 End: 10-06-2022 ambulatory JUAN CERVANTES . [facility] Other Start: 05-11-2022 End: 05-11-[address] SHADI BRAND . Facility: Start: 05-11-2022 End: 05-12-[address] SHADI BRAND . Facility: Start: 04-15-2022 ambulatory [facility] Start: 03-30-2022 End: 03-30-2022 ambulatory [facility] Start: 03-30-2022 End: 03-30-2022 Encounter for preprocedural laboratory examination [facility] Start: 03-03-2022 End: 03-03-2022 ambulatory [facility] Start: 01-28-2021 End: 01-28-2021 Chart abstracting Kavin Soria MD Work Phone: Hematology/Oncology Start: 10-07-2020 End: 10-08-2020 ambulatory CHATO CALLE Facility:[facility] Procedures Date Procedure Procedure Detail Performing Clinician Start: 10-16-2024 ALL CBC WITH AUTO DIFF Shadi Brand DO Work Phone: Start: 04-23-2021 H/O: hysterectomy Status post hysterectomy Maribelky Londono MACHINE ACCOUNTANT-SKIN PEELING MACHINE OPERATOR Work Phone: Start: 10-07-2020 ANESTH ELBOW AREA SURGERY CHATO CALLE Start: 10-07-2020 Neuroplasty &/transposition ulnar nerve elbow HUBERT GRIFFIN Plan of Treatment Date Care Activity Detail Author Start: 10-22-2025 End: 10-22-2025 Patient encounter procedure 10/22/2025 8:30 AM EDT Office Visit [facility] [address] [place] [id number] Shadi Brand, DO [address] [place] [address] [facility] Start: 04-02-2024 Tobacco Screening Tobacco Screening [facility] Start: 02-06-2024 Influenza vaccination Influenza Vacc ine [facility] Start: 08-13-2023 Adult BMI Screening Adult BMI Screen ing [facility] Start: 02-05-2021 Influenza vaccination INFLUENZA (#1) [facility] Start: 12-26-2015 HPV TESTING HPV TESTING [facility] Start: 2006 PAP TESTING PAP TESTING [facility] Start: 2004 DTaP,Tdap and Td Vac cines (1 - Tdap) DTaP,Tdap and Td Vaccines (1 - Tdap) [facility] Start: 2004 Urine microalbumin profile DTAP,TDAP,TD (1 - Tdap) [facility] Start: 12-26-2003 HEPATITIS C SCREENING HEPATITIS C SC [place] [facility] Start: 12-26-2003 HIV SCREENING HIV SCREENING [facility] Start: 1997 Adult depression screening assessment DEPRESSION SCREENING [facility] Start: 1997 COVID-19 VACCINE (1) COVID-19 VACCIN E (1) [facility] Payers Date Payer Category Payer Medicaid [id number] 2022 Medicaid [id number] 2020 Medicaid [employer] MEDICA ID [employer]VANT[employer] MEDICAID [id number] 2020-Present Medicaid [id number] 1985 Unknown [id number] 1985 Unknown [id number] 1985 Unknown [id number] 1985 Unknown [id number] 1985 Unknown [id number] 1985 Unknown [id number] 1985 Unknown [id number] 1985 Unknown [id number] 1959 Self-pay 1959 Unknown [id number] Unknown [id number] Social History Date Type Detail Facility Start: 01-28-2021 End: 05-25-2023 Tobacco smoking status [facility] Former smoker [facility] Start: 01-28-2021 End: 10-16-2024 Alcohol intake Current drinker of alcohol (finding) [facility] Start: 01-28-2021 Alcohol Comment occasional [facility] Start: 1985 Sex Assigned At Not on file [facility] Exposure to SARS-CoV -2 (event) Not sure [facility] Start: 04-02-2023 End: 10-16-2024 Sex Assigned At [facility] Other Start: 08-12-2022 End: 08-27-2023 Tobacco smoking status NHIS Never smoked tobacco (finding) [facility] Start: 1985 Sex Assigned At Female [facility] Start: 08-12-2022 Tobacco use and exposure Smokeless tobacco non-user [facility] Start: 04-02-2023 End: 10-16-2024 History of Social function [facility] Childcare Unknown [facility] Start: 12-03-2021 Alcohol Comment on occasion [facility] Start: 01-10-2015 Sex Female (finding) [facility] History of tobacco use Current smoker [facility] History of tobacco use Cigarette Smoker [facility] How often to you hav e a drink containing alcohol? Never [facility] How many standard drinks containing alcohol do you have on a typical day? 1 or 2 [facility] Start: 05-25-2023 Tobacco Comment Last smoked 5-10 years [facility] Start: 05-25-2023 Alcohol Comment Caffeine intake: 2-3 cups per day [facility] Start: 05-19-2023 Gender identity Identifies as female gender (finding) [facility] Start: 05-19-2023 Sexual orientation Heterosexual (finding) [facility] Clinical Notes 02-03-2021 to 04-10-2024 Telephone Encounter - Arely Corcoran - 04/10/2024 10:57 AM ESTTelephone Encounter - Arely Corcoran - 04/10/2024 10:57 AM EST Note Date & Type Note Facility 04-10-2024 Miscellaneous Notes Formattin g of this note might be different from the original. Called patient to reschedule 04/05/24 appointment with SK. Patient did not have her schedule with her and said she would call back to reschedule the appointment. documented in this encounter [facility] 04-10-2024 Telephone encount er Note Called patient to reschedule 04/05/24 appointment with SK. Patient did not have her schedule with her and said she would call back to reschedule the appointment. [facility] 02-15-2023 Evaluation note Encounter Date Diagnosis Assessment Notes Feb, Sore throat (ICD-10 - J02.9) Feb, Bronchitis (ICD-10 - J40) Acute bronchitis home care material was printed Drink plenty fluids, get plenty of rest. Take the azithromycin and prednisone as prescribed until gone. Use the albuterol inhaler as prescribed as needed for cough or shortness of breath. Take the benzonatate tablets, Tessalon Perles, for cough as prescribed. Follow-up with your family physician if no improvement in 2 to 3 days. May return to work tomorrow [facility] Other 05-02-2023 Evaluation note* Encounter Date Diagnosis Assessment Notes Treatment Notes Treatment Clinical Notes October, Other Patient pres ents today with left hip injury, pain 10 out of 10 today, requesting pain medication, referred to ER for further evaluation and work-up. [facility] Other 05-02-2023 NotePROCEDURE: XR HIP LT 2 3V W PELVIS HISTORY: Pain ; left hip pain after falling down steps COMPARISON: None. FINDINGS: BONES:Tiny ossification along superior rim of the left acetabulum. Normal appearance of the femoral heads and joint spacing bilaterally. SOFT TISSUES:No visible soft tissue swelling. EFFUSION:None visible. OTHER: Negative. IMPRESSION: 1. Possible tiny cortical avulsion fracture from superior rim of the left acetabulum. This could also represent heterotopic bone formation from remote injury or developing degenerative osteophyte. Consider follow-up radiograph cysts, or CT pelvis at this time. Electronically authenticated by: ANIL PÉREZ Date: 2022-10-06 11:58[facility]11-09-2022 NoteOrthopedic Surgery Jocelyn Isaac comes in for a post-operative visit after having a left CTR & UNT done on 03/30/22. She had a reaction to the benzoin and steri-strips and developed some blistering in that site on her elbow. She was placed on a steroid by her primary care physician and it is much improved. Physical Exam: The incision site is healing well. There is no erythema, drainage or signs of infection. Tenderness is mild and localized to the surgical site. Sensation is present present to light touch. She does have a little numbness posterior to the elbow incision. Range of motion is appropriate for this time. Assessment: Jocelyn Isaac is a 36 y.o. year old female with Cubital tunnel syndrome on left Carpal tunnel syndrome of left wrist Plan: The sutures were removed in the clinic today. I instructed the patient on how to do scar massage, and then apply lotion to the incisional site. They can begin using the hand and returning to activities as tolerated. We will see her back in a month if she is not back to normal.[facility] 03-30-2022 NotePatient: Jocelyn Isaac Procedure Summary Date: 03/30/22 Room / Location: [facility] OR [address] [place] [address] OR Anesthesia Start: 1033 Anesthesia Stop: 1143 Procedures: RELEASE, CARPAL TUNNEL (Left: Hand) TRANSPOSITION, NERVE, ULNAR (Left: Forearm) Diagnosis: Carpal tunnel syndrome of left wrist Cubital tunnel syndrome on left (Carpal tunnel syndrome of left wrist [G56.02]) (Cubital tunnel syndrome on left [G56.22]) Surgeons: Hubert Griffin MD Responsible Provider: Iftikhar Mason MD Anesthesia Type: regional ASA Status: 3 Anesthesia Type: regional Vitals Value Taken Time BP 162/71 03/30/22 1205 Temp 36.2 ???C (97.2 ???F) 03/30/22 1135 Pulse 72 03/30/22 1205 Resp 16 03/30/22 1205 SpO2 100 % 03/30/22 1205 Anesthesia Post Evaluation Patient location during evaluation: PACU Patient participation: complete - patient participated Level of consciousness: awake and alert Pain management: adequate Airway patency: patent Cardiovascular status: acceptable Respiratory status: acceptable Hydration status: acceptable No notable events documented.[facility]10-24-2022 Note No concerns as per call back guidelinesUnJ.W. Ruby [facility] 03-30-2022 NotePatient: Jocelyn Isaac Procedure Information Date/Time: 03/30/22 1000 Procedures: RELEASE, CARPAL TUNNEL (Left: Hand) - Please make case no earlier than 9:30 or 10 am. TRANSPOSITION, NERVE, ULNAR (Left: Forearm) - Please make case no earlier than 9:30 or 10 am. Location: [facility] OR [address] [place] [address] OR Surgeons: Hubert Griffin MD Relevant Problems Anesthesia (-) History of anesthesia complications Endo (+) Hypothyroid GI (+) GERD (gastroesophageal reflux disease) Nervous (+) Carpal tunnel syndrome of left wrist (+) Cubital tunnel syndrome on left Endocrine/Metabolic (+) Morbid obesity (CMS/HCC) Hematologic (+) Factor V Leiden (CMS/HCC) Other (+) Anxiety Clinical information reviewed: Tobacco Allergies Meds Med Hx Surg Hx OB Status Fam Hx Soc Hx Physical Exam Airway Mallampati: III TM distance: >3 FB Neck ROM: full Cardiovascular Rhythm: regular Rate: normal Dental Pulmonary Breath sounds clear to auscultation Abdominal Anesthesia Plan ASA 3 regional (Discussed risks of peripheral nerve block with the patient, specifically including possible bleeding, infection, temporary or permanent neve damage. Patient understands these risks and is willing to proceed with the nerve block. ) intravenous induction Anesthetic plan and risks discussed with patient. Plan discussed with CAA, resident and medical student. Additional [facility]10-24-2022 Note Peripheral Block Patient location during procedure: pre-op Start time: 03/30/2022 9:52 AM End time: 03/30/2022 9:57 AM Reason for block: primary anesthetic and at surgeon's request Staffing Performed: anesthesiologist Anesthesiologist: Iftikhar Mason MD Preanesthetic Checklist Completed: patient identified, IV checked, site marked, risks and benefits discussed, surgical consent, monitors and equipment checked, pre-op evaluation and timeout performed Peripheral Block Patient position: supine Prep: ChloraPrep Patient monitoring: heart rate and continuous pulse ox Block type: axillary Laterality: left Injection technique: single-shot Guidance: ultrasound guided Needle Needle type: short-bevel Needle gauge: 22 G Needle length: 2 in Needle localization: anatomical landmarks and ultrasound guidance Medications Administered Bupivacaine HCl (Marcaine) 0.5 % (5 mg/mL) injection, 200 mg Assessment Injection assessment: negative aspiration for heme, no paresthesia on injection, incremental injection and local visualized surrounding nerve on ultrasound Paresthesia pain: none Heart rate change: no Slow fractionated injection: yesUnJ.[facility] NoteOrthopedic Surgery Subjective Chief complaint: Chief Complaint Patient presents with Left Hand - Pain Left Arm - Pain 03/03/22 Jocelyn Isaac is a 36 y.o. year old female presenting today with a chief complaint of left hand numbness and tingling. She has had this for over 1 year. Her symptoms of numbness and tingling will occasionally wake her up at night. She has tried conservative management in the form of brace wear. She had similar complaints in her right hand and had carpal tunnel cubital tunnel release performed October 2020. She has had significant improvement in her right upper extremity and would like similar symptom relief to the left: . ROS was reviewed and was negative for fever, chills, nausea, vomiting, headache, chest pain, shortness of breath. Patient History No past surgical history on file. No past medical history on file. Objective General: Body mass index is 45.42 kg/m???. No acute distress, comfortable Respiratory: Unlabored breathing with normal rate, no cough Cardiovascular: Warm well perfused extremities Psych: Appropriate mood behavior Left upper extremity: Inspection-left elbow skin is intact. No erythema. No bruising. Left wrist skin is intact. No bruising. No erythema. Special tests-positive Tinel at the elbow. Positive carpal compression test at the wrist. Motors-5 out of 5 muscle strength in median, ulnar, radial nerve motor distribution. Sensory-sensory intact light touch in median, ulnar, radial nerve. Vascular-radial pulse 2+ and intact. EMG performed 09-03-2020 makes note of left wrist mild carpal tunnel and ulnar nerve neuropathy at the left elbow. Assessment/Plan Jocelyn Isaac is a 36 y.o. year old female with Carpal tunnel syndrome of left wrist Cubital tunnel syndrome on left. Due to her failure of conservative management in the form of brace wear, she is indicated for left carpal tunnel release and cubital tunnel release with possible transposition. Surgical consent was obtained today. Risks and benefits of surgery were explained. Christian Styles MD PGY-3 Orthopedic Surgery [facility] By using the attestations below, the signing clinician agrees that I have read and verify that the documentation has been personally reviewed by me and ensure that the documentation accurately reflects the encounter. GC: I personally saw this patient on the day of the encounter, performed the ames portion(s) of the service and participated in the management and confirm the resident's documentation. Please note there may be an additional personal documentation from me.[facility]08-30-2021 NoteHNO ID: [id number] Author: Kavin Soria MD Service: ? Author Type: Physician Type: Progress Notes Filed: 02/04/2021 6:18 AM Note Text: HEMATOLOGY INITIAL CONSULTATION February 03, 2021 REFERRAL REQUESTED BY: Shadi Brand PCP and other physicians involved in patient's care: Shadi Brand (surgery, [facility]) REASON FOR CONSULTATION: Factor V Leiden, clearance prior to hysterectomy HEMATOLOGICAL HISTORY: ? First in 2007 at the age of 22 years was complicated by a VQ scan concerning for a pulmonary embolism at 26 weeks. She received LMWH until 6 to 8 weeks . At some point she was also on warfarin after delivery. She had a . She was diagnosed to have a factor V Leiden mutation after anticoagulation was stopped and placed on aspirin. ? Second in 2010 for which she received LMWH from 10 weeks of to 6 weeks . She had a that was uneventful. ? Third in 2014 for which she received LMWH starting 10 weeks. She was switched to heparin 1 month before delivery to facilitate a spinal block. After delivery, she continued LMWH for 6 weeks. She had a with tubal ligation. course was complicated by uterine bleeding thought to be secondary to a problem with sutures. A clot was removed from the uterus, and she underwent repeat debridement a month later. She had a wound vac in place. ? She had a laparoscopic adhesiolysis in 2015 under general anesthesia and a carpal tunnel release in October 2020 which were uncomplicated ? Family history is questionable for venous thromboembolic events. Her father had a cardiac event. Paternal grandparents had sudden cardiac deaths, unclear whether these were pulmonary emboli. Paternal cousin had MTHFR mutation for which she received thromboprophylaxis during , but she did not have blood clots. ? Other risk factors for VTE include a high BMI. She is not a smoker and has not used oral contraceptives in the past. HPI: This is a 35-year-old female comes to the clinic for preoperative clearance. She has a history of factor V Leiden likely heterozygous, who is planned for hysterectomy. She has an IUD in place, and despite that is having heavy menstrual periods. She does not wish for any more pregnancies and the decision was made to proceed with abdominal hysterectomy. She has a history of pulmonary embolism with her first in 2007 as detailed above for which a preop clearance has been requested. Currently she denies any symptoms. ROS is negative except that mentioned in HPI PAST MEDICAL SURGICAL FAMILY AND SOCIAL HISTORY: She has a history of hypothyroidism and obesity. Hematological, family and surgical history is as detailed above. She lives with her 3 kids. She denies any substance abuse. MEDICATIONS AND ALLERGIES: Reviewed PHYSICAL EXAM BP 142/89 Pulse 99 Temp 36.5 ?C (97.7 ?F) (Temporal) Resp 18 Ht 170.2 cm (5' 7 ) Wt 135 kg (297 lb 9.6 oz) LMP 02/03/2021 SpO2 100% BMI 46.61 kg/m? Head atraumatic, no pallor, icterus or lymphadenopathy, lungs clear to auscultation, heart sounds regular, abdomen soft without distension or organomegaly, neuro grossly non-focal, skin without rash, extremities without swelling LABORATORY, IMAGING AND PATHOLOGY N/A ASSESSMENT AND RECOMMENDATIONS 35 female with factor V Leiden likely heterozygous Patient has a factor V Leiden (likely heterozygous) that was detected in 2007 after pulmonary embolism when she was 26 weeks . This VTE event would be categorized as a provoked clot. Additional 2 pregnancies were uncomplicated in the setting of adequate anticoagulation. Other risk factors for venous thromboembolic events includes obesity. I am doubtful about the thrombogenic significance of the Factor V Leiden, especially in the absence of . Overall, her risk of a VTE event post hysterectomy would be in the range of 4-10% based on an elevated modified Caprini score (moderate to high risk of VTE). Her bleeding risk is low. Recommend initiating pharmacologic prophylaxis with enoxaparin 40 mg once daily after hemostasis is achieved. Early ambulation is recommended. Enoxaparin can be continued until discharge. Given the doubtful role of factor V Leiden in the associated VTE event in 2007, I am not certain a longer duration of prophylaxis is warranted. Kavin Soria MD [phone] I spent a total of 62 minutes on the date of the service which included preparing to see the patient, [id number] patient care, completing clinical documentation, obtaining and/or reviewing separately obtained history, performing a medically appropriate examination and counseling and educating the patient/family/caregiver.[facility] No assessment information availableMccullough-[facility] Work Phone: History general Narrative - Reported* Type Description Date Medical History hypothyroidism Medical History HX of pulmonary embollism Medical History Factor v blood disorder Surgical History rt knee surgery- 2001 Surgical History x's 3 Surgical History oral surger Hospitalization History see above surger Hospitalization History CHILD -C'S 3 C-SEC TIONS 02/01/15 Hospitalization History ABBEY-ABDOMINAL SURGE RY 02/04/15 [employer] Other InstructionsNot on filedocumented in this encounter [facility] Summary Purpose Family History Relationship Condition Age at Onset Recorded Date/T debbie Not Specified Hypertension Unknown father Heart disease Unknown Advance Directives Advance Directive Response Recorded Date/ Time Advance Directives No August 26, 2 024 9:06am Chief Complaint and Reason for Visit Chief Complaint Cough, sore throat Additional Source Comments Source Comments (unrecognize d section and content) In the event this informatio n is protected by the Federal Confidentiality of Alcohol and Drug Abuse Patient Records regulations: The Federal rules restrict any use of the information to criminally investigate or prosecute any alcohol or drug abuse patient.[facility] INFORMATION SOURCE (unrecogn ized section and content) DATE CREATED AUTHOR 03/21/2021 [facility] DATE CREATED AUTHOR AUTHOR'S ORGANIZ ATION 07/11/2021 [facility] DATE CREATED AUTHOR AUTHOR'S ORGANIZ ATION 10/09/2022 [facility] DATE CREATED AUTHOR AUTHOR'S ORGANIZ ATION 11/14/2022 [facility] DATE CREATED AUTHOR AUTHOR'S ORGANIZ ATION 10/08/2023 [facility] EPIC DATE CREATED AUTHOR AUTHOR'S ORGANIZ ATION 08/15/2024 [facility] REASON FOR VISIT (unrecogniz ed section and content) fell downstairs this am left hip in alot of painCOUGH FOR A WEEK, MUCUS, NO FEVER, NO CHILLS Care Teams (unrecognized sec tion and content) Team Status: Active Member Role Status Dates Chato Calle MD Primary Care Provider Active Team Status: Inactive Member Role Status Dates Chato Calle MD Primary Care Provider Active Start: August 27, 2023 End: August 27, 2023 Sandy Norris APRN Attending Provider Active Start: August 27, 2023 End: August 27, 2023 Senior [employer] Relationship Specialty Start Date End Date Chato Calle MD [address] [place] [address] PCP - General Family Medicine 10/20/21 Senior [employer] Relationship Specialty Start Date End Date Chato Calle MD [address] [place] [address] PCP - General 06/16/23 Senior [employer] Relationship Specialty Start Date End Date Chato Calle MD [address] [place] [address] PCP - General 06/16/23 Goals (unrecognized section and content) Goals may be documented in a n alternate section FOR RECORDS PERTAINING TO PATIENTS WHO ARE OR HAVE BEEN ENROLLED IN A CHEMICAL DEPENDENCY/SUBSTANCEABUSE PROGRAM, SOME INFORMATION MAY BE OMITTED. This clinical summary was aggregated from multiple sources. Caution should be exercised in using it in the provision of clinical care. This summary normalizes information from multiple sources, and as a consequence, information in this document may materially change the coding, format and clinical context of patient data. In addition, data may be omitted in some cases. CLINICAL DECISIONS SHOULD BE BASED ON THE PRIMARY CLINICAL RECORDS. [facility] [employer] [facility] provides no warranty or guarantee of the accuracy or completeness of information in this document.
[2024-10-16 10:35] LABS: Estimated Average Glucose 111 mg/dL; Glycohemoglobin A1C 5.5 % (4.5-6.2)
[2024-10-16 10:49] LABS: Thyroid Stimulating Hormone 2.478 uIU/mL (0.358-3.740)
== END 2024-10-16 09:56 | disposition home or self-care (01) ==
LOC: LAB 09:58
PROVIDERS: PCP Family Medicine; Visit Provider Obstetrics & Gynecology
DX: Z01.419 Encounter for gynecological examination (general) (routine) without abnormal findings (principal); Z76.89 Persons encountering health services in other specified circumstances; E74.39 Other disorders of intestinal carbohydrate absorption
CPT/HCPCS: 36415; 83036; 84443; 85025; 87624; 88175

== ENCOUNTER 2024-10-16 16:11 | Outpatient (REF) | payer MEDICAID, SELFPAY ==
[2024-10-19 13:12] LABS: Age Gdln ACOG Testing Note (.); HPV Aptima Negative (Negative); IGP, Aptima HPV, rfx 16/18,45 Note (.)
== END 2024-10-16 16:12 | disposition home or self-care (01) ==
LOC: LAB 16:11
PROVIDERS: PCP Family Medicine; Visit Provider Obstetrics & Gynecology
DX: Z01.419 Encounter for gynecological examination (general) (routine) without abnormal findings (principal)
CPT/HCPCS: 87624; 88175